=== PATIENT | male | born 1965 | race Caucasian/White ===

== ENCOUNTER 2019-01-08 07:10 | Day surgery (SDC) | payer OTHER ==
[~2019-01-08] VITALS: Ht 172.7 cm; Wt 61.2 kg
[2019-01-08] MEDS ORDERED: LIDOCAINE 2% 100 MG/5 ML UJET TP ONE (09:28)
[2019-01-08] MEDS ORDERED: fentaNYL 0.05 MG/ML VIAL ONE (09:28)
[2019-01-08] MEDS ORDERED: MIDAZOLAM 2 MG/2 ML VIAL ONE (09:36)
[2019-01-08] MEDS ORDERED: fentaNYL 0.05 MG/ML VIAL IVP ONE (10:30)
[2019-01-08] MEDS ORDERED: MIDAZOLAM 2 MG/2 ML VIAL IVP ONE (10:30)
== END 2019-01-08 10:55 | disposition home or self-care (01) ==
LOC: MOR 07:10 → MMU 07:17 → MOR 10:55
PROVIDERS: ATTEND Internal Medicine Gastroenterology
DX: K62.5 Hemorrhage of anus and rectum (principal); D12.3 Benign neoplasm of transverse colon; K64.8 Other hemorrhoids; K57.30 Diverticulosis of large intestine without perforation or abscess without bleeding; F17.200 Nicotine dependence, unspecified, uncomplicated
CPT/HCPCS: 45385; J2250; J3010